=== PATIENT | male | born 1955 | race Caucasian/White ===

== ENCOUNTER 2016-08-28 21:11 | Emergency (ER) | payer OTHER ==
--- NOTE | 2016-08-28 21:35 | EDPHY ---
H & P Stated Complaint: pressure behind eyes and "fogginess"; A+ox4; thinks he had a TIA HPI/ROS: CHIEF COMPLAINT: Pressure behind eyes. HISTORY OF PRESENT ILLNESS: The patient is an anticoagulated 60 y/o male, who believes he has had multiple TIAs in the last few months, complaining of pressure behind both eyes since waking Wednesday, 3 days ago. He says he missed a dose of his Eliquis Wednesday night and woke Wednesday morning feeling tired with associated pressure behind both eyes. He's had these symptoms previously and the pressure is usually followed by "wormies" in his vision when he gets migraines. He reports that his anxiety has increased with all these symptoms and is concerned he had a TIA. He is primarily in the ED today because he wants reassurance before traveling tomorrow. REVIEW OF SYSTEMS: A ten point review of systems was performed and is negative with the exception of the items mentioned in the HPI. Source: Patient Exam Limitations: No limitations - Personal History Current Tetanus/Diphtheria Vaccine: Yes Current Tetanus Diphtheria and Acellular Pertussis (TDAP): Yes Tetanus Vaccine Date: unknown - Medical/Surgical History PMH: PMH includes: 1. Mitral valve repair on Eliquis 2. Atrial flutter 3. Bipolar II 4. Anxiety Prior medical records reviewed including admission 03/07/16 for transient paresthesia and ED visit 08/03/16 also for transient paresthesia. Hx Asthma: No Hx Chronic Respiratory Disease: No Hx Diabetes: No Hx Cardiac Disease: Yes Hx Renal Disease: No Hx Cirrhosis: No Hx Alcoholism: No Hx HIV/AIDS: No Hx Splenectomy or Spleen Trauma: No Other PMH: 1. Mitral valvuloplasty with [place] neochordae, left atrial appendage closure and Maze ablation. 2. Atrial flutter. 3. Bipolar disease. 4. Anxiety. 5. 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 - Physical Exam Exam: General Appearance: Alert. Vital signs reviewed. Eyes: Pupils equal and round, no conjunctival injection, no discharge. Anicteric. ENT, Mouth: Mucous membranes are moist, no oropharyngeal erythema or edema. Neck: No lymphadenopathy, supple. No carotid bruits. Respiratory: Lungs are clear to auscultation; no wheezes, rales, or rhonchi. Cardiovascular: Regular rate and rhythm; no murmur, rub, or gallop. No carotid bruit. Gastrointestinal: Abdomen is soft and nontender, no masses or organomegaly, bowel sounds normal. Skin: Warm and dry, no rashes on exposed skin, normal color. Back: Nontender to palpation over the thoracolumbar spine. No CVAT. Extremities: No lower extremity edema, no calf tenderness or swelling. Neurological: Alert and oriented. Moving all four extremities easily and equally. Cranial nerves II through XII are examined and are intact (visual acuity not tested). Strength is 5 over 5 bilaterally with testing of all major motor groups. Sensation is intact to light touch over all 4 extremities. Deep tendon reflexes are 2+ in the biceps and knees bilaterally. Gait is normal. [id number] is performed accurately. Psychiatric: Normal affect. Constitutional: Initial Vital Signs Temperature (C) 36.5 C 08/28/16 21:19 Heart Rate 70 08/28/16 21:19 Respiratory Rate 14 08/28/16 21:19 Blood Pressure 99/65 L 08/28/16 21:19 O2 Sat (%) 96 08/28/16 21:19 O2 Delivery Mode Room Air Allergies/Adverse Reactions: No Known Allergies Allergy (Verified 08/04/16 00:19) Home Medications: Medication Instructions Recorded LORazepam [Ativan (*)] 0.5 mg PO DAILY PRN 03/07/16 lamOTRIGine [Lamictal] 75 mg PO DAILY 03/07/16 Eliquis 08/28/16 Fish Oil 08/28/16 Magnesium 08/28/16 Medical Decision Making ED Course/Re-evaluation: 60-year-old male known to me from a previous emergency department visit. His neurologic exam is normal. I do not suspect CVA, either hemorrhagic or ischemic. I think he is likely experiencing ocular migraines. I do not recommend imaging or further ED evaluation. We had a lengthy discussion, during which I provided reassurance. His questions were answered to the best of my ability. He is comfortable returning home. Differential Diagnosis: I considered a ddx that includes but is not limited to CVA, migraine (including complex and ocular), TIA, tension headache, cluster headache, and anxiety. Departure - Departure Disposition: Home, Routine, Self-Care Clinical Impression: Ocular migraine Condition: Fair Instructions: Ocular Migraine (ED) Additional Instructions: Follow up with your primary care provider for symptoms not improved in the next 2-3 days. Referrals: NAJMA STEIN [Primary Care Provider] - As per Instructions Report Scribed for: Ximena Jones Report Scribed by: Estela Mcneal Date of Report: 08/28/16 Time of Report: 21:57 Physician Review and Approval Statement: 08/28/16 21:36 Portions of this note were transcribed by the medical examiner. I, Dr. Ximena Jones, personally performed the history, physical exam, and medical decision- making; and confirmed the accuracy of the information in the transcribed note.
[2016-08-28 21:48] VITALS: PULSE 69; O2SAT 94
[2016-08-28 22:34] VITALS: BP 104/52; RESP 20; TEMP 97.9
== END 2016-08-28 22:34 | disposition home or self-care (01) ==
DX: G43.809 Other migraine, not intractable, without status migrainosus (principal)